=== PATIENT | male | born 1965 | race Caucasian/White ===

== ENCOUNTER 2024-12-06 10:11 | Inpatient (IN) | payer BC ==
--- NOTE | 2024-12-06 11:22 | ED ---
General Adult HPI - General Chief complaint: Abdominal Pain Stated complaint: Abd pain Time Seen by Provider: 12/06/24 10:20 Source: patient, EMS, RN notes reviewed, old records reviewed Mode of arrival: EMS Limitations: no limitations - History of Present Illness Initial comments: This is a 59-year-old male who presents to the emergency department from [facility]. Patient was diagnosed with diverticulitis with a small abscess. Patient was transferred to us at that time. Patient currently has only mild left lower quadrant abdominal pain. Patient denies any fever chills. Patient has vomiting diarrhea. Patient states he has a history of this about 6 months ago. They started the patient on Unasyn and then gave another dose of Zosyn. - Related Data Allergies Allergy/AdvReac Type Severity Reaction Status Date / Time bee venom protein (honey bee) Allergy Swelling Verified 12/06/24 10:32 [email or web address] [From Chantix] AdvReac Unknown Verified 12/06/24 10:32 Review of Systems ROS Statement: Those systems with pertinent positive or pertinent negative responses have been documented in the HPI. ROS Other: All systems not noted in ROS Statement are negative. Past Medical History Past Medical History: Hypertension History of Any Multi-Drug Resistant Organisms: None Reported Past Surgical History: Hernia Repair Additional Past Surgical History / Comment(s): tumor removal under jaw Past Psychological History: No Psychological Hx Reported Smoking Status: Current every day smoker Past Alcohol Use History: Occasional Past Drug Use History: Marijuana General Exam - General Exam Comments Initial Comments: GENERAL: Patient is well-developed and well-nourished. Patient is nontoxic and well- hydrated and is in mild distress. ENT: Neck is soft and supple. No significant lymphadenopathy is noted. Oropharynx is clear. Moist mucous membranes. Neck has full range of motion without eliciting any pain. EYES: The sclera were anicteric and conjunctiva were pink and moist. Extraocular movements were intact and pupils were equal round and reactive to light. Eyelids were unremarkable. PULMONARY: Unlabored respirations. Good breath sounds bilaterally. No audible rales rhonchi or wheezing was noted. CARDIOVASCULAR: There is a regular rate and rhythm without any murmurs gallops or rubs. ABDOMEN: Patient has some mild left lower quadrant abdominal pain SKIN: Skin is clear with no lesions or rashes and otherwise unremarkable. NEUROLOGIC: Patient is alert and oriented x3. Cranial nerves II through XII are grossly intact. Motor and sensory are also intact. Normal speech, volume and content. Symmetrical smile. MUSCULOSKELETAL: Normal extremities with adequate strength and full range of motion. LYMPHATICS: No significant lymphadenopathy is noted PSYCHIATRIC: Normal psychiatric evaluation. Limitations: no limitations Course Vital Signs 12/06/24 12/06/24 10:17 12:48 Temperature 98.2 F Pulse Rate 67 67 Respiratory 17 17 Rate Blood Pressure 107/63 112/74 O2 Sat by Pulse 94 L 95 Oximetry Medical Decision Making - Medical Decision Making Was pt. sent in by a medical professional or institution (, PA, SCHOOL RESOURCE OFFICER, urgent care, hospital, or fpc...) When possible be specific @ -Patient was sent to us from [facility] Did you speak to anyone other than the patient for history (EMS, parent, family, police, friend...)? What history was obtained from this source @ -I spoke with the ER [place] [facility] prior to transfer Did you review nursing and triage notes (agree or disagree)? Why? @ -I reviewed and agree with nursing and triage notes Were old charts reviewed (outside hosp., previous admission, EMS record, old EKG, old radiological studies, urgent care reports/EKG's, fpc records)? Report findings @ -I reviewed all documentation that was sent with the patient from [facility] including the CT scan and lab work. Differential Diagnosis? @ -Differential Abdominal Pain Men: Appendicitis, cholecystitis, diverticulosis, ischemic bowel, pancreatitis, hepatitis, UTI, gastroenteritis, AAA, incarcerated hernia, bowel obstruction, constipation, inflammatory bowel, hepatitis, peptic ulcer disease, splenic infarction, perforated viscus, testicular torsion, this is not meant to be an all-inclusive list EKG interpreted by me (3pts min.). @ -As above X-rays interpreted by me (1pt min.). @ -None done CT interpreted by me (1pt min.). @ -None done U/S interpreted by me (1pt. min.). @ -None done What testing was considered but not performed or refused? (CT, X-rays, U/S, labs)? Why? @ -None What meds were considered but not given or refused? Why? @ -None Did you discuss the management of the patient with other professionals (professionals i.e. , PA, SCHOOL RESOURCE OFFICER, lab, RT, psych nurse, sexual assault social worker, financial reporting manager, teacher, chief information officer, correctional case manager)? Give summary @ -I spoke with Dr. Locke he agreed admit the patient. I spoke with Dr. Bahena and he saw the patient in the emergency department. Was smoking cessation discussed for >3mins.? @ -No Was critical care preformed (if so, how long)? @ -No Were there social determinants of health that impacted care today? How? (Homelessness, low income, unemployed, alcoholism, drug addiction, transportation, low edu. Level, literacy, decrease access to med. care, mcc, rehab)? @ -No Was there de-escalation of care discussed even if they declined (Discuss DNR or withdrawal of care, Hospice)? DNR status @ -No What co-morbidities impacted this encounter? (DM, HTN, Smoking, COPD, CAD, Cancer, CVA, ARF, Chemo, Hep., AIDS, mental health diagnosis, sleep apnea, morbid obesity)? @ -None Was patient admitted / discharged? Hospital course, mention meds given and route, prescriptions, significant lab abnormalities, going to OR and other pertinent info. @ -Patient was started on antibiotics at the other facility and will be placed on antibiotics here and will be admitted to Dr. Locke with a consult to Dr. Lopez Undiagnosed new problem with uncertain prognosis? @ -No Drug Therapy requiring intensive monitoring for toxicity (Heparin, Nitro, Insulin, Cardizem)? @ -No Were any procedures done? @ -No Diagnosis/symptom? @ -Diverticulitis with abscess Acute, or Chronic, or Acute on Chronic? @ -Acute Uncomplicated (without systemic symptoms) or Complicated (systemic symptoms)? @ -Complicated Side effects of treatment? @ -No Exacerbation, Progression, or Severe Exacerbation? @ -No Poses a threat to life or bodily function? How? (Chest pain, [place], [place], pneumonia, PE, COPD, DKA, ARF, appy, cholecystitis, CVA, Diverticulitis, Homicidal, Suicidal, threat to staff... and all critical care pts) @ -Yes this could lead to sepsis and endorgan dysfunction Disposition Clinical Impression: Diverticulitis of intestine with abscess Disposition: ADMITTED IP TO THIS HOSP Referrals: Jerel Damon MD [Primary Care Provider] - 1-2 days Time of Disposition: 12:54
[2024-12-06] MEDS: HYDROmorphone 0.5 MG/0.5 ML SYRINGE IVP STA (13:12)
[2024-12-06] MEDS: SODIUM CHLORIDE 0.9% 1,000 ML IV ONE (13:14)
[2024-12-06] MEDS ORDERED: ONDANSETRON 4 MG/2 ML VIAL IVP PRN (13:18)
[2024-12-06] MEDS ORDERED: ACETAMINOPHEN TAB 325 MG TAB PO PRN (13:18)
[2024-12-06] MEDS ORDERED: CALCIUM CARBONATE 500 MG CHEWABLE PO PRN (13:18)
[2024-12-06] MEDS ORDERED: NALOXONE 0.4 MG/ML 1 ML VIAL IV PRN (13:18)
--- NOTE | 2024-12-06 13:21 | P.HPIM ---
History of Present Illness H&P Date: 12/06/24 Chief Complaint: Abdominal pain Pleasant 59-year-old patient who follows with Dr. Damon. Patient reports 6 to 7 months ago at significant abdominal pain was admitted to [facility] seen with Dr. Rocha. Then had an abscess. Was given antibiotics dis charged home. He did follow-up locally in [place]. Subsequently he was seen by Helena martin from GI service patient was then moved to [place] about 5 months ago. He was again admitted for 3 days with antibiotics. He was then told he probably need surgery. Sequential CT scans x 3 the abscess diminished and he was told he could be managed medically. 3 days ago he had colonoscopy done by the local doctor up in [place]. Some polyps were removed. Today subsequently started having creasing lower abdominal pain. Again presented to the [facility]. CT scan showed acute diverticulitis with an abscess of 5.5 x 5.5 x 5.9 cm. Some air-fluid levels. He was transferred down here. Patient normally has 1-2 bowel movements a day. Patient has felt a bit warm. No nausea vomiting. General surgery Dr. Bahena was consulted from the ER. Patient's at the bedside. Review of systems: GEN.: Tired EYES: None HEENT: None NECK: None RESPIRATORY: None CARDIOVASCULAR: None GASTROINTESTINAL: As above GENITOURINARY: None MUSCULOSKELETAL: None LYMPHATICS: None HEMATOLOGICAL: None PSYCHIATRY: None NEUROLOGICAL: None Social history: Drinks about 4 beers about 5 times a week. 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 Patient smoked for about 10 years 1 pack a day. Is a very light smoker. Physical examination: VITAL SIGNS: 98.2, 67, 17, 112 x 74, 95% room air GENERAL: BMI 37.7, lying bed awake not in distress. EYES: Pupils equal. Conjunctiva avis l. HEENT: External appearance of nose and ears normal, oral cavity grossly normal. NECK: JVD not raised; masses not palpable. HEART: First and second heart sounds are normal; no edema. LUNGS: Respiratory rate normal; clear to auscultation. ABDOMEN: Soft, some left lower quadrant tenderness, no guarding rigidity liver spleen not palpable, no masses palpable. PSYCH: Alert and oriented x3; mood and affect avis l. MUSCULOSKELETAL:No Clubbing/cyanosis;muscles-grossly intact NEUROLOGICAL: Cranial nerves grossly intact; no facial asymmetry, power and sensation grossly intact. LYMPHATICS: No lymph nodes palpable in the axilla and neck INVESTIGATIONS, reviewed in the clinical context: Blood work from [facility]: White count 15.6 hemoglobin 13.9 platelets 291 sodium 137 potassium 3.7 BUN 10 creatinine 0[address] scan abdomen pelvis: Left colon diverticulosis. Area of diverticulitis with a air-fluid level abscess of 5.5 x 5.5 x 5.9 cm. Assessment plan: -Acute diverticular abscess of 5.5 x 5.5 x 5.9 cm. Apparently patient is third episode of abscess 1 being treated about 6 to 7 months ago at [facility] then about 4 to 5 months ago at [facility]. Both times patient resolved. IV Zosyn. Clear liquid diet. Dr. Jaylon Lopez general surgery consulted. He may consider consulting interventional radiology for drainage -Acute left colonic diverticulitis IV Zosyn -Acute colonic diverticulosis -Chronic nicotine dependence cigarette smoker Nicotine patch -Full code Care was discussed with the patient and the at the bedside. Follow-up with surgery. Past Medical History Past Medical History: Hypertension History of Any Multi-Drug Resistant Organisms: None Reported Past Surgical History: Hernia Repair Additional Past Surgical History / Comment(s): tumor removal under jaw Past Psychological History: No Psychological Hx Reported Smoking Status: Current every day smoker Past Alcohol Use History: Occasional Past Drug Use History: Marijuana Medications and Allergies Allergies Allergy/AdvReac Type Severity Reaction Status Date / Time bee venom protein (honey bee) Allergy Swelling Verified 12/06/24 10:32 [email or web address] [From Chantix] AdvReac Unknown Verified 12/06/24 10:32 Physical Exam Vitals: Vital Signs Temp Pulse Resp BP Pulse Ox 12/06/24 12:48 67 17 112/74 95 12/06/24 10:17 98.2 F 67 17 107/63 94 L Intake and Output 12/05/24 12/06/24 12/06/24 22:59 06:59 14:59 Other: Weight 122.47 kg
--- NOTE | 2024-12-06 13:35 | XR ---
EXAMINATION TYPE: XR chest 2V DATE OF EXAM: 12/06/2024 1:31 PM COMPARISON: None. CLINICAL INDICATION: Male, 59 years old with history of Smoker, TECHNIQUE: XR chest 2V view(s) obtained. FINDINGS: The heart size is normal. The pulmonary vasculature is normal. The lungs are clear. IMPRESSION: 1. No acute pulmonary process. [facility], , 12/06/2024 1:32 PM
[2024-12-06] MEDS: PIPERACILLIN-TAZOBACTAM 3.375 GM in SODIUM CHLORIDE 0.9% 100 ML IVPB SCH (13:46)
[2024-12-06] MEDS: NICOTINE 21MG/24HR PATCH TRANSDERM SCH (13:51)
[2024-12-06] MEDS: ENOXAPARIN 40 MG/0.4 ML SYRINGE SQ SCH (13:51)
[2024-12-06] MEDS: LACTATED RINGERS 1,000 ML IV SCH (14:10)
--- NOTE | 2024-12-06 19:12 | P.GSCN ---
History of Present Illness History of present illness: Pleasant 59-year-old patient who follows with Dr. Damon. Patient reports 6 to 7 months ago at significant abdominal pain was admitted to [facility] seen with Dr. Rocha. Then had an abscess. Was given antibiotics discharged home. He did follow-up locally in [place]. Subsequently he was seen by Helena martin from GI service patient was then moved to [place] about 5 months ago. He was again admitted for 3 days with antibiotics. He was then told he probably need surgery. Sequential CT scans x 3 the abscess diminished and he was told he could be managed medically. 3 days ago he had colonoscopy done by the local doctor up in [place]. Some polyps were removed. Today subsequently started having creasing lower abdominal pain. Again presented to the [facility]. CT scan showed acute diverticulitis with an abscess of 5.5 x 5.5 x 5.9 cm. Some air-fluid levels. He was transferred down here. Patient normally has 1-2 bowel movements a day. Patient has felt a bit warm. No nausea vomiting. Review of Systems - Constitutional Reports as per HPI Past Medical History Past Medical History: Hypertension History of Any Multi-Drug Resistant Organisms: None Reported Past Surgical History: Hernia Repair Additional Past Surgical History / Comment(s): tumor removal under jaw Past Anesthesia/Blood Transfusion Reactions: No Reported Reaction Past Psychological History: No Psychological Hx Reported Smoking Status: Current every day smoker Past Alcohol Use History: Occasional Past Drug Use History: Marijuana Medications and Allergies Home Medications Medication Instructions Recorded Confirmed Type [place]-3/Dha/Epa/Fish Oil [Fish Oil 1 cap PO TID 12/06/24 12/06/24 History 1,000 mg Softgel] Psyllium Husk [Fiber Capsule] 0.4 gm PO BID-W/MEALS 12/06/24 12/06/24 History lisinopriL 40 mg PO DAILY 12/06/24 12/06/24 History lisinopriL 40 mg PO DAILY PRN 12/06/24 12/06/24 History Allergies Allergy/AdvReac Type Severity Reaction Status Date / Time bee venom protein (honey bee) Allergy Swelling Verified 12/06/24 13:31 [email or web address] [From Chantix] AdvReac Unknown Verified 12/06/24 13:31 Surgical - Exam Osteopathic Statement: *. No significant issues noted on an osteopathic structural exam other than those noted in the History and Physical/Consult. Vital Signs Temp Pulse Resp BP Pulse Ox 98.2 F 67 17 107/63 94 L 12/06/24 10:17 12/06/24 10:17 12/06/24 10:17 12/06/24 10:17 12/06/24 10:17 gen: nad cv: rrr pul: non labored breathing abd: soft, distended, tender to palpation in left lower quadrant as well as supraumbilical Assessment and Plan Assessment: 59 yo male w/ Hinchey II complicated diverticulitis -in an attempt to avoid giving the patient a colostomy bag, recommend IR intervention -goal is to follow up outpatient and perform an elective sigmoidectomy with primary anastamosis -continue IV abx -NPO Time with Patient: Greater than 30
[2024-12-06] MEDS: HYDROmorphone 1 MG/ML 1 ML SYRINGE IVP PRN (20:50)
[2024-12-06] MEDS: ALPRAZolam 0.25 MG TAB PO PRN (20:52)
[2024-12-06] MEDS: TEMAZEPAM 15 MG CAP PO PRN (20:52)
[2024-12-06] MEDS: HYDROcodone/APAP 5-325MG 1 EACH TAB PO PRN (23:50)
[2024-12-07 06:14] LABS: Basophils # (A) 0.1 k/uL (0-0.2); Basophils % (A) 1 %; Eosinophils # (A) 0.2 k/uL (0-0.7); Eosinophils % (A) 2 %; HCT 38.3 % (39.0-53.0); HGB 12.8 gm/dL (13.0-17.5); Lymphocytes # (A) 1.7 k/uL (1.0-4.8); Lymphocytes % (A) 18 %; MCH 32.7 pg (25.0-35.0); MCHC 33.5 g/dL (31.0-37.0); MCV 97.4 fL (80.0-100.0); Mean Platelet Volume 6.8; Monocytes # (A) 0.7 k/uL (0-1.0); Monocytes % (A) 8 %; Neutrophils # (A) 6.6 k/uL (1.3-7.7); Neutrophils % (A) 69 %; Platelet Count 292 k/uL (150-450); RBC 3.93 m/uL (4.30-5.90); RDW 12.8 % (11.5-15.5); WBC 9.5 k/uL (3.8-10.6)
[2024-12-07 06:27] LABS: ALT 24 U/L (4-49); AST 33 U/L (17-59); African American GFR (CKD) >90 (>60 ml/min/1.73 sqM); Albumin 3.2 g/dL (3.5-5.0); Albumin/Globulin Ratio 1.1; Alkaline Phosphatase 63 U/L (38-126); Anion Gap 7 mmol/L; Blood Urea Nitrogen 11 mg/dL (9-20); Calcium 8.6 mg/dL (8.4-10.2); Carbon Dioxide 25 mmol/L (22-30); Chloride 105 mmol/L (98-107); Globulin 2.9 g/dL; Glucose 87 mg/dL (74-99); Non-African American GFR(CKD) >90 (>60 ml/min/1.73 sqM); Potassium 3.9 mmol/L (3.5-5.1); Sodium 137 mmol/L (137-145); Total Bilirubin 1.4 mg/dL (0.2-1.3); Total Protein 6.1 g/dL (6.3-8.2)
--- NOTE | 2024-12-07 17:04 | P.PN ---
Progress Note - Text Progress Note Date: 12/07/24 Chief Complaint: Abdominal pain Pleasant 59-year-old patient who follows with Dr. Damon. Patient reports 6 to 7 months ago at significant abdominal pain was admitted to [facility] seen with Dr. Rocha. Then had an abscess. Was given antibiotics discharged home. He did follow-up locally in [place]. Subsequently he was seen by Helena martin from GI service patient was then moved to [place] about 5 months ago. He was again admitted for 3 days with antibiotics. He was then told he probably need surgery. Sequential CT scans x 3 the abscess diminished and he was told he could be managed medically. 3 days ago he had colonoscopy done by the local doctor up in [place]. Some polyps were removed. Today subsequently started having creasing lower abdominal pain. Again presented to the [facility]. CT scan showed acute diverticulitis with an abscess of 5.5 x 5.5 x 5.9 cm. Some air-fluid levels. He was transferred down here. Patient normally has 1-2 bowel movements a day. Patient has felt a bit warm. No nausea vomiting. General surgery Dr. Bahena was consulted from the ER. Patient's at the bedside. December 07: Patient has significantly increased pain overnight until this morning. Received IV Dilaudid. Pain is better.No fever. Will order repeat CT scan of the abdomen with contrast. Dr. Bahena from general surgery following. Patient is scheduled for IR drainage tomorrow. Patient was on clears. Made NPO. Active Medications Acetaminophen (Acetaminophen Tab 325 Mg Tab) 650 mg PO Q6HR PRN PRN Reason: Mild Pain or Fever > 100.5 Hydrocodone Bitart/Acetaminophen (Hydrocodone/Apap 5-325mg 1 Each Tab) 1 each PO Q4HR PRN PRN Reason: Moderate Pain (Scale 4 to 6) Last Admin: 12/07/24 14:24 Dose: 1 each Alprazolam (Alprazolam 0.25 Mg Tab) 0.25 mg PO Q6HR PRN PRN Reason: Anxiety Last Admin: 12/06/24 20:52 Dose: 0.25 mg Calcium Carbonate/Glycine (Calcium Carbonate 500 Mg Chewable) 1,000 mg PO Q4HR PRN PRN Reason: Dyspepsia Enoxaparin Sodium (Enoxaparin 40 Mg/0.4 Ml Syringe) 40 mg SQ DAILY ERIKA Last Admin: 12/07/24 08:42 Dose: 40 mg Hydromorphone HCl (Hydromorphone 1 Mg/Ml 1 Ml Syringe) 1 mg IVP Q4HR PRN PRN Reason: Pain Scale 7 to 10 Last Admin: 12/07/24 06:24 Dose: 1 mg Piperacillin Sod/Tazobactam (Sod 3.375 gm/ Sodium Chloride) 100 mls @ 25 mls/hr IVPB Q8H ERIKA; Protocol Last Admin: 12/07/24 14:20 Dose: 25 mls/hr Lactated Ringer's (Lactated Ringers) 1,000 mls @ 125 mls/hr IV .Q8H ERIKA Last Admin: 12/07/24 15:34 Dose: Not Given Iopamidol (Iopamidol Contrast (Oral Use) Vial) 30 ml PO Q60M PRN PRN Reason: CT Scan Stop: 12/08/24 16:59 Naloxone HCl (Naloxone 0.4 Mg/Ml 1 Ml Vial) 0.2 mg IV Q2M PRN PRN Reason: Opioid Reversal Nicotine (Nicotine 21mg/24hr Patch) 1 patch TRANSDERM DAILY [facility] Last Admin: 12/07/24 08:42 Dose: Not Given Ondansetron HCl (Ondansetron 4 Mg/2 Ml Vial) 4 mg IVP Q8HR PRN PRN Reason: Nausea And Vomiting Temazepam (Temazepam 15 Mg Cap) 15 mg PO HS PRN PRN Reason: Insomnia Last Admin: 12/06/24 20:52 Dose: 15 mg Social history: Drinks about 4 beers about 5 times a week. 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 Patient smoked for about 10 years 1 pack a day. Is a very light smoker. Physical examination: VITAL SIGNS: 98.8, 69, 16, 127 x 75, 94% room air GENERAL: BMI 37.7, lying bed awake, bit tired EYES: Pupils equal. Conjunctiva avis l. HEENT: External appearance of nose and ears normal, oral cavity grossly normal. NECK: JVD not raised; masses not palpable. HEART: First and second heart sounds are normal; no edema. LUNGS: Respiratory rate normal; clear to auscultation. ABDOMEN: Soft, some left lower quadrant tenderness, no guarding rigidity liver spleen not palpable, no masses palpable. PSYCH: Alert and oriented x3; mood and affect avis l. MUSCULOSKELETAL:No Clubbing/cyanosis;muscles-grossly intact INVESTIGATIONS, reviewed in the clinical context: December 07: White count 9.5 hemoglobin 12.8 potassium 3.9 creatinine 0.64 Blood work from [facility]: White count 15.6 hemoglobin 13.9 platelets 291 sodium 137 potassium 3.7 BUN 10 creatinine 0[address] scan abdomen pelvis: Left colon diverticulosis. Area of diverticulitis with a air-fluid level abscess of 5.5 x 5.5 x 5.9 cm. Assessment plan: -Acute diverticular abscess of 5.5 x 5.5 x 5.9 cm.: Much worsening overnight Apparently patient is third episode of abscess 1 being treated about 6 to 7 months ago at [facility] then about 4 to 5 months ago at [facility]. Both times-resolved. IV Zosyn. Clear liquid diet stopped. Made NPO. Dr. Jaylon Lopez considering interventional radiology to drain Repeat CT scan with contrast today given overnight much increasing pain. -Acute left colonic diverticulitis IV Zosyn -Acute colonic diverticulosis -Chronic nicotine dependence cigarette smoker Nicotine patch -Full code NPO. IV Zosyn. Repeat CT scan today with contrast. Past Medical History Past Medical History: Hypertension History of Any Multi-Drug Resistant Organisms: None Reported Past Surgical History: Hernia Repair Additional Past Surgical History / Comment(s): tumor removal under jaw Past Psychological History: No Psychological Hx Reported Smoking Status: Current every day smoker Past Alcohol Use History: Occasional Past Drug Use History: Marijuana
[2024-12-07] MEDS: IOPAMIDOL CONTRAST (ORAL USE) VIAL PO PRN (20:14)
--- NOTE | 2024-12-07 22:48 | CT ---
EXAMINATION TYPE: CT abdomen pelvis w con DATE OF EXAM: 12/07/2024 COMPARISON: Outside CT one day earlier CLINICAL INDICATION: Male, 59 years old with history of Increased pain with diverticulitis; PHH, abdo miguel pain, diverticulitis TECHNIQUE: Performed with Oral Contrast and with IV Contrast, patient injected with 100 mL of Isovue 300. CT DLP: 2597.4 mGycm Automated exposure control for dose reduction was used. FINDINGS: LUNG BASES: There is new bibasilar linear atelectasis. LIVER/GB: Cholecystectomy clips are redemonstrated. PANCREAS: No significant abnormality is seen. SPLEEN: No significant abnormality is seen. ADRENALS: Stable 2.0 cm left adrenal mass. Hounsfield units average 15. Malignant etiology not exclud ed. KIDNEYS: Persistent 3.8 cm simple appearing cortical cyst right kidney axial image 32. FREE AIR: No free air is visualized. RETROPERITONEAL ADENOPATHY: None visualized REPRODUCTIVE ORGANS: No significant abnormality is seen URINARY BLADDER: No significant abnormality is seen. PELVIC ADENOPATHY: None visualized. OSSEOUS STRUCTURES: Moderate disc space narrowing at the lumbosacral junction redemonstrated. BOWEL: Oral contrast reaches level of hepatic flexure. No abnormal small or large bowel dilatation. Scattered colonic diverticula most prominent distally. Persistent acute diverticulitis with mild/mode rate fat stranding along the proximal and mid sigmoid colon. Superior to this there is persistent thi n wall fluid collection with air-fluid level measuring 5.4 x 5.1 cm consistent with focal abscess axi al image 61. OTHER: Surgical clips left groin region are redemonstrated. IMPRESSION: PERSISTENT ACUTE DIVERTICULITIS WITH ADJACENT 5.4 CM FOCAL FLUID COLLECTION OR ABSCESS. NO SIGNIFICA NT CHANGE FROM OUTSIDE CT ONE DAY EARLIER. [facility], , 12/07/2024 10:45 PM
--- NOTE | 2024-12-07 23:18 | P.PN ---
Subjective Patient seen and evaluated at bedside. Patient admits to abdominal soreness in the left lower quadrant and suprapubic region. STates pain has improved compared to yesterday. Objective - Vital Signs Vital signs: Vital Signs Temp 98.6 F 12/07/24 19:02 Pulse 61 12/07/24 19:02 Resp 17 12/07/24 19:02 BP 118/56 12/07/24 19:02 Pulse Ox 94 L 12/07/24 19:02 FiO2 Intake & Output 12/07/24 12/07/24 12/08/24 06:59 18:59 06:59 Intake Total 1860 Balance 1860 Intake: Oral 0 Other: Voiding Method Toilet Toilet # Voids 1 4 - Exam gen: nad cv: rrr pul non labored breathing abd: soft, distended, tender to palpation in the left lower quadrant - Labs CBC & Chem 7: 12/07/24 05:44 12/07/24 05:44 Labs: Abnormal Lab Results - Last 24 Hours (Table) 12/07/24 12/07/24 Range/Units 05:44 05:44 RBC 3.93 L (4.30-5.90) m/uL Hgb 12.8 L (13.0-17.5) gm/dL Hct 38.3 L (39.0-53.0) % Creatinine 0.64 L (0.66-1.25) mg/dL Total Bilirubin 1.4 H (0.2-1.3) mg/dL Total Protein 6.1 L (6.3-8.2) g/dL Albumin 3.2 L (3.5-5.0) g/dL Assessment and Plan Assessment: 59 yo male w/ Hinchey II complicated diverticulitis -in an attempt to avoid giving the patient a colostomy bag, recommend IR intervention -goal is to follow up outpatient and perform an elective sigmoidectomy with primary anastamosis -continue IV abx -NPO -pain has slightly improved compared to yesterday Time with Patient: Less than 30
--- NOTE | 2024-12-08 11:44 | P.PN ---
Subjective Progress Note Date: 12/08/24 SURGICAL PROGRESS NOTE CHIEF COMPLAINT: Diverticulitis with abscess HISTORY OF PRESENT ILLNESS: Patient reports that he is feeling better today. He reports he had some pain after the CAT scan with diarrhea. Pain is now better. He denies any nausea or vomiting. CT scan abdomen pelvis had shown persistent acute diverticulitis with adjacent 5. 4 cm focal fluid collection or abscess. Patient evaluated by IR service. They reported that the fluid collection was too deep for them to reach and recommended a transfer to another facility. Afebrile. WBC is 9.5 Hgb 12.8 PHYSICAL EXAM: VITAL SIGNS: Reviewed. GENERAL: Well-developed in no acute distress. ABDOMEN: Soft. Nondistended. Mild discomfort with palpation left lower quadrant NEUROLOGIC: Alert and oriented. Cranial nerves II through XII grossly intact. ASSESSMENT: 1. Acute diverticulitis with abscess PLAN: -IR service at this facility is unable to place drain. They are reporting the fluid collection is too deep for them to reach. They recommended transfer to a tertiary care center to be evaluated by their IR service. This was discussed with medicine service and dependency case manager. manager electrical notified transfer team at [facility] about transfer. -Continue antibiotics Physician Baker Pie note has been reviewed by physician. Signing provider agrees with the documented findings, assessment, and plan of care. Objective - Vital Signs Vital signs: Vital Signs Temp 98.5 F 12/08/24 07:04 Pulse 64 12/08/24 07:04 Resp 16 12/08/24 07:04 BP 130/71 12/08/24 07:04 Pulse Ox 94 L 12/08/24 07:04 FiO2 Intake & Output 12/07/24 12/08/24 12/08/24 18:59 06:59 18:59 Intake Total 1860 Balance 1860 Intake: Oral 1860 Other: Voiding Method Toilet Toilet # Voids 4 1 # Bowel Movements 1 - Labs CBC & Chem 7: 12/07/24 05:44 12/07/24 05:44
[2024-12-08 13:31] VITALS: BMI 37.6
--- NOTE | 2024-12-08 19:17 | P.PN ---
Progress Note - Text Progress Note Date: 12/08/24 Chief Complaint: Abdominal pain Pleasant 59-year-old patient who follows with Dr. Damon. Patient reports 6 to 7 months ago at significant abdominal pain was admitted to [facility] seen with Dr. Rocha. Then had an abscess. Was given antibiotics discharged home. He did follow-up locally in [place]. Subsequently he was seen by Helena martin from GI service patient was then moved to [place] about 5 months ago. He was again admitted for 3 days with antibiotics. He was then told he probably need surgery. Sequential CT scans x 3 the abscess diminished and he was told he could be managed medically. 3 days ago he had colonoscopy done by the local doctor up in [place]. Some polyps were removed. Today subsequently started having creasing lower abdominal pain. Again presented to the [facility]. CT scan showed acute diverticulitis with an abscess of 5.5 x 5.5 x 5.9 cm. Some air-fluid levels. He was transferred down here. Patient normally has 1-2 bowel movements a day. Patient has felt a bit warm. No nausea vomiting. General surgery Dr. Bahena was consulted from the ER. Patient's at the bedside. December 07: Patient has significantly increased pain overnight until this morning. Received IV Dilaudid. Pain is better.No fever. Will order repeat CT scan of the abdomen with contrast. Dr. Bahena from general surgery following. Patient is scheduled for IR drainage tomorrow. Patient was on clears. Made NPO. December 08: CT scan done yesterday evening, unchanged from previous CT scan. Received a call from surgical team that are IR team cannot access the abscess patient have to be transferred out. Shirley Herrera from case management was informed. Later this afternoon she informed me that [facility] had declined. Then she had reached out to Brendan Barnes. Later received a call from Brendanchioma Barnes transfer team telephone #[phone]. She informed me that the case has been put up to their interventional radiology and they will call me back later. The last time awaiting a call. Patient remains on IV Zosyn. Pain controlled. No fever. NPO. Active Medications Acetaminophen (Acetaminophen Tab 325 Mg Tab) 650 mg PO Q6HR PRN PRN Reason: Mild Pain or Fever > 100.5 Hydrocodone Bitart/Acetaminophen (Hydrocodone/Apap 5-325mg 1 Each Tab) 1 each PO Q4HR PRN PRN Reason: Moderate Pain (Scale 4 to 6) Last Admin: 12/07/24 14:24 Dose: 1 each Alprazolam (Alprazolam 0.25 Mg Tab) 0.25 mg PO Q6HR PRN PRN Reason: Anxiety Last Admin: 12/06/24 20:52 Dose: 0.25 mg Calcium Carbonate/Glycine (Calcium Carbonate 500 Mg Chewable) 1,000 mg PO Q4HR PRN PRN Reason: Dyspepsia Enoxaparin Sodium (Enoxaparin 40 Mg/0.4 Ml Syringe) 40 mg SQ DAILY [facility] Last Admin: 12/08/24 08:44 Dose: 40 mg Hydromorphone HCl (Hydromorphone 1 Mg/Ml 1 Ml Syringe) 1 mg IVP Q4HR PRN PRN Reason: Pain Scale 7 to 10 Last Admin: 12/08/24 18:59 Dose: 1 mg Piperacillin Sod/Tazobactam (Sod 3.375 gm/ Sodium Chloride) 100 mls @ 25 mls/hr IVPB Q8H [facility]; Protocol Last Admin: 12/08/24 13:57 Dose: 25 mls/hr Lactated Ringer's (Lactated Ringers) 1,000 mls @ 125 mls/hr IV .Q8H [facility] Last Admin: 12/08/24 18:55 Dose: 125 mls/hr Naloxone HCl (Naloxone 0.4 Mg/Ml 1 Ml Vial) 0.2 mg IV Q2M PRN PRN Reason: Opioid Reversal Nicotine (Nicotine 21mg/24hr Patch) 1 patch TRANSDERM DAILY [facility] Last Admin: 12/08/24 08:44 Dose: Not Given Ondansetron HCl (Ondansetron 4 Mg/2 Ml Vial) 4 mg IVP Q8HR PRN PRN Reason: Nausea And Vomiting Temazepam (Temazepam 15 Mg Cap) 15 mg PO HS PRN PRN Reason: Insomnia Last Admin: 12/07/24 22:17 Dose: 15 mg Social history: Drinks about 4 beers about 5 times a week. 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 Patient smoked for about 10 years 1 pack a day. Is a very light smoker. Physical examination: VITAL SIGNS: 98.4, 62, 17, 123 x 73, 95% GENERAL: BMI 37.7, lying bed awake, not in distress EYES: Pupils equal. Conjunctiva avis l. HEENT: External appearance of nose and ears normal, oral cavity grossly normal. NECK: JVD not raised; masses not palpable. HEART: First and second heart sounds are normal; no edema. LUNGS: Respiratory rate normal; clear to auscultation. ABDOMEN: Soft, some left lower quadrant tenderness, no guarding rigidity liver spleen not palpable, no masses palpable. PSYCH: Alert and oriented x3; mood and affect avis l. MUSCULOSKELETAL:No Clubbing/cyanosis;muscles-grossly intact INVESTIGATIONS, reviewed in the clinical context: December 07: White count 9.5 hemoglobin 12.8 potassium 3.9 creatinine 0.64 Blood work from [facility]: White count 15.6 hemoglobin 13.9 platelets 291 sodium 137 potassium 3.7 BUN 10 creatinine 0[address] scan abdomen pelvis: Left colon diverticulosis. Area of diverticulitis with a air-fluid level abscess of 5.5 x 5.5 x 5.9 cm. Assessment plan: -Acute diverticular abscess of 5.5 x 5.5 x 5.9 cm.: Not improving Apparently patient is third episode of abscess 1 being treated about 6 to 7 months ago at [facility] then about 4 to 5 months ago at [facility]. Both times-resolved. IV Zosyn. N.p.o. Per surgical team patient to be transferred out because abscess is rather deep and our IR team cannot access it. [facility] declined. Brendan Barnes awaiting return phone call. -Acute left colonic diverticulitis IV Zosyn -Acute colonic diverticulosis -Chronic nicotine dependence cigarette smoker Nicotine patch -Full code NPO. IV Zosyn. Plan for transfer patient out Past Medical History Past Medical History: Hypertension History of Any Multi-Drug Resistant Organisms: None Reported Past Surgical History: Hernia Repair Additional Past Surgical History / Comment(s): tumor removal under jaw Past Psychological History: No Psychological Hx Reported Smoking Status: Current every day smoker Past Alcohol Use History: Occasional Past Drug Use History: Marijuana
[2024-12-09 06:10] LABS: Basophils # (A) 0.1 k/uL (0-0.2); Basophils % (A) 1 %; Eosinophils # (A) 0.3 k/uL (0-0.7); Eosinophils % (A) 6 %; HCT 38.9 % (39.0-53.0); HGB 12.9 gm/dL (13.0-17.5); Lymphocytes # (A) 1.3 k/uL (1.0-4.8); Lymphocytes % (A) 23 %; MCH 31.6 pg (25.0-35.0); MCHC 33.2 g/dL (31.0-37.0); MCV 95.4 fL (80.0-100.0); Mean Platelet Volume 7.2; Monocytes # (A) 0.4 k/uL (0-1.0); Monocytes % (A) 8 %; Neutrophils # (A) 3.2 k/uL (1.3-7.7); Neutrophils % (A) 58 %; Platelet Count 346 k/uL (150-450); RBC 4.07 m/uL (4.30-5.90); RDW 12.7 % (11.5-15.5); WBC 5.5 k/uL (3.8-10.6)
[2024-12-09] MEDS: DEXTROSE 5%-0.45% NACL 1,000 ML IV SCH (09:05)
--- NOTE | 2024-12-09 15:14 | P.PN ---
Subjective Progress Note Date: 12/09/24 SURGICAL PROGRESS NOTE CHIEF COMPLAINT: Diverticulitis with abscess HISTORY OF PRESENT ILLNESS: Patient reports some mild discomfort in the left lower quadrant. He is awaiting transfer to [facility] to be evaluated by their IR service for possible drain placement. Afebrile. WBC 5.5 patient reports that he is feeling better today. He reports he had some pain after the CAT scan with diarrhea. Pain is now better. He denies any nausea or vomiting. CT scan abdomen pelvis had shown persistent acute diverticulitis with adjacent 5. 4 cm focal fluid collection or abscess. Patient evaluated by IR service. They reported that the fluid collection was too deep for them to reach and recommended a transfer to another facility. Afebrile. WBC is 9.5 Hgb 12.8 PHYSICAL EXAM: VITAL SIGNS: Reviewed. GENERAL: Well-developed in no acute distress. ABDOMEN: Soft. Nondistended. Mild discomfort with palpation left lower quadrant NEUROLOGIC: Alert and oriented. Cranial nerves II through XII grossly intact. ASSESSMENT: 1. Acute diverticulitis with abscess PLAN: -IR service at this facility is unable to place drain. They are reporting the fluid collection is too deep for them to reach. They recommended transfer to a tertiary care center to be evaluated by their IR service. -Patient has been accepted at [facility]. Possible transfer to [facility] today -Continue antibiotics Physician Log Grader note has been reviewed by physician. Signing provider agrees with the documented findings, assessment, and plan of care. Attestation IR service did evaluate the CT and reports that fluid collection is too deep for them to reach. IR recommendation is for transfer to tertiary care center to be evaluated by different IR service. Awaiting transfer to outside facility. Michelle Zelaya DO Objective - Vital Signs Vital signs: Vital Signs Temp 98.5 F 12/09/24 14:00 Pulse 55 L 12/09/24 14:00 Resp 18 12/09/24 14:00 BP 152/73 12/09/24 14:00 Pulse Ox 94 L 12/09/24 14:00 FiO2 Intake & Output 12/08/24 12/09/24 12/09/24 18:59 06:59 18:59 Intake Total 700 Balance 700 Weight 122.47 kg Intake: Intake, IV Titration 700 Amount Lactated Ringers 1,000 ml 500 @ 125 mls/hr IV .Q8H [facility] Rx#:[id number] Piperacillin-Tazobactam 3 200 .375 gm In Sodium Chloride 0.9% 100 ml @ 25 mls/hr IVPB Q8H [facility] Rx#: [id number] Other: Voiding Method Toilet Toilet # Voids 2 2 - Labs CBC & Chem 7: 12/09/24 05:24 12/07/24 05:44 Labs: Abnormal Lab Results - Last 24 Hours (Table) 12/09/24 Range/Units 05:24 RBC 4.07 L (4.30-5.90) m/uL Hgb 12.9 L (13.0-17.5) gm/dL Hct 38.9 L (39.0-53.0) %
--- NOTE | 2024-12-09 17:46 | P.PN ---
Progress Note - Text Progress Note Date: 12/09/24 Chief Complaint: Abdominal pain Pleasant 59-year-old patient who follows with Dr. Damon. Patient reports 6 to 7 months ago at significant abdominal pain was admitted to [facility] seen with Dr. Rocha. Then had an abscess. Was given antibiotics discharged home. He did follow-up locally in [place]. Subsequently he was seen by Helena martin from GI service patient was then moved to [place] about 5 months ago. He was again admitted for 3 days with antibiotics. He was then told he probably need surgery. Sequential CT scans x 3 the abscess diminished and he was told he could be managed medically. 3 days ago he had colonoscopy done by the local doctor up in [place]. Some polyps were removed. Today subsequently started having creasing lower abdominal pain. Again presented to the [facility]. CT scan showed acute diverticulitis with an abscess of 5.5 x 5.5 x 5.9 cm. Some air-fluid levels. He was transferred down here. Patient normally has 1-2 bowel movements a day. Patient has felt a bit warm. No nausea vomiting. General surgery Dr. Bahena was consulted from the ER. Patient's at the bedside. December 07: Patient has significantly increased pain overnight until this morning. Received IV Dilaudid. Pain is better.No fever. Will order repeat CT scan of the abdomen with contrast. Dr. Bahena from general surgery following. Patient is scheduled for IR drainage tomorrow. Patient was on clears. Made NPO. December 08: CT scan done yesterday evening, unchanged from previous CT scan. Received a call from surgical team that are IR team cannot access the abscess patient have to be transferred out. Shirley Herrera from case management was informed. Later this afternoon she informed me that [facility] had declined. Then she had reached out to Brendanmarcelle Barnes. Later received a call from [facility] transfer team telephone #[phone]. She informed me that the case has been put up to their interventional radiology and they will call me back later. The last time awaiting a call. Patient remains on IV Zosyn. Pain controlled. No fever. NPO. December 09: Abdominal pain much better. Spoke to Hina from social work therapist. Told her to reach out again to Brendan Lewellen. That was done. Meantime also reached out to [facility]. Where patient received previous care. Communication [id number] finally Brendan Cameron excepted the patient. Currently no beds available. For insomnia given Ambien. Antibiotics to continue. Remains NPO. Active Medications Acetaminophen (Acetaminophen Tab 325 Mg Tab) 650 mg PO Q6HR PRN PRN Reason: Mild Pain or Fever > 100.5 Hydrocodone Bitart/Acetaminophen (Hydrocodone/Apap 5-325mg 1 Each Tab) 1 each PO Q4HR PRN PRN Reason: Moderate Pain (Scale 4 to 6) Last Admin: 12/07/24 14:24 Dose: 1 each Alprazolam (Alprazolam 0.25 Mg Tab) 0.25 mg PO Q6HR PRN PRN Reason: Anxiety Last Admin: 12/06/24 20:52 Dose: 0.25 mg Calcium Carbonate/Glycine (Calcium Carbonate 500 Mg Chewable) 1,000 mg PO Q4HR PRN PRN Reason: Dyspepsia Enoxaparin Sodium (Enoxaparin 40 Mg/0.4 Ml Syringe) 40 mg SQ DAILY [facility] Last Admin: 12/09/24 08:31 Dose: 40 mg Piperacillin Sod/Tazobactam (Sod 3.375 gm/ Sodium Chloride) 100 mls @ 25 mls/hr IVPB Q8H [facility]; Protocol Last Admin: 12/09/24 15:01 Dose: 25 mls/hr Dextrose/Sodium Chloride (Dextrose 5%-1/2ns Iv Soln) 1,000 mls @ 125 mls/hr IV .Q8H [facility] Last Admin: 12/09/24 15:51 Dose: 125 mls/hr Naloxone HCl (Naloxone 0.4 Mg/Ml 1 Ml Vial) 0.2 mg IV Q2M PRN PRN Reason: Opioid Reversal Nicotine (Nicotine 21mg/24hr Patch) 1 patch TRANSDERM DAILY [facility] Last Admin: 12/09/24 08:30 Dose: Not Given Ondansetron HCl (Ondansetron 4 Mg/2 Ml Vial) 4 mg IVP Q8HR PRN PRN Reason: Nausea And Vomiting Zolpidem Tartrate (Zolpidem 5 Mg Tab) 5 mg PO [facility] Social history: Drinks about 4 beers about 5 times a week. 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 Is a very light smoker. Physical examination: VITAL SIGNS: 98.5, 55, 18, 152 x 73, 94% room air GENERAL: BMI 37.7, lying bed awake, not in distress EYES: Pupils equal. Conjunctiva avis l. HEENT: External appearance of nose and ears normal, oral cavity grossly normal. NECK: JVD not raised; masses not palpable. HEART: First and second heart sounds are normal; no edema. LUNGS: Respiratory rate normal; clear to auscultation. ABDOMEN: Soft, some left lower quadrant tenderness, no guarding rigidity liver spleen not palpable, no masses palpable. PSYCH: Alert and oriented x3; mood and affect avis l. MUSCULOSKELETAL:No Clubbing/cyanosis;muscles-grossly intact INVESTIGATIONS, reviewed in the clinical context: December 09: White count 5.5 globin 12.9 platelets 346 December 07: White count 9.5 hemoglobin 12.8 potassium 3.9 creatinine 0.64 Blood work from [facility]: White count 15.6 hemoglobin 13.9 platelets 291 sodium 137 potassium 3.7 BUN 10 creatinine 0[address] scan abdomen pelvis: Left colon diverticulosis. Area of diverticulitis with a air-fluid level abscess of 5.5 x 5.5 x 5.9 cm. Assessment plan: -Acute left colonic diverticular abscess of 5.5 x 5.5 x 5.9 cm.: Not improving Apparently patient is third episode of abscess 1 being treated about 6 to 7 months ago at [facility] then about 4 to 5 months ago at [facility]. Both times-resolved. IV Zosyn. N.p.o. Patient accepted at [facility].-Currently no beds available -Acute left colonic diverticulitis IV Zosyn -Acute colonic diverticulosis -Chronic nicotine dependence cigarette smoker Nicotine patch -Full code NPO. IV Zosyn. Ending bed at [facility] for transfer. Past Medical History Past Medical History: Hypertension History of Any Multi-Drug Resistant Organisms: None Reported Past Surgical History: Hernia Repair Additional Past Surgical History / Comment(s): tumor removal under jaw Past Psychological History: No Psychological Hx Reported Smoking Status: Current every day smoker Past Alcohol Use History: Occasional Past Drug Use History: Marijuana
[2024-12-09] MEDS: ZOLPIDEM 5 MG TAB PO SCH (22:58)
--- NOTE | 2024-12-10 14:20 | P.PN ---
Subjective Progress Note Date: 12/10/24 SURGICAL PROGRESS NOTE CHIEF COMPLAINT: Diverticulitis with abscess HISTORY OF PRESENT ILLNESS: Patient is awaiting bed availability for transfer to [facility]. Patient reports improving left lower quadrant abdominal pain. Denies any nausea or vomiting. Afebrile. PHYSICAL EXAM: VITAL SIGNS: Reviewed. GENERAL: Well-developed in no acute distress. ABDOMEN: Soft. Nondistended. Mild discomfort with palpation left lower quadrant NEUROLOGIC: Alert and oriented. Cranial nerves II through XII grossly intact. ASSESSMENT: 1. Acute diverticulitis with abscess PLAN: -IR service at this facility is unable to place drain. They are reporting the fluid collection is too deep for them to reach. Fluid collection measuring 5.[address] [facility] IR service is recommended transfer to a tertiary care center to be evaluated by tertiary center IR service. -Patient has been accepted at [facility] awaiting bed availability -Continue antibiotics Physician Placement Coordinator note has been reviewed by physician. Signing provider agrees with the documented findings, assessment, and plan of care. Attestation Patient seen and examined at bedside. Presented with chief complaint of abdo miguel pain. Abdominal pain is resolving. His abscess is noted to be about 5.[address] Per interventional radiology, they are recommending transfer to tertiary care center for evaluated by another IR service for drainage. Patient is currently on IV antibiotics. We will continue these antibiotics as we await transfer for bed availability. Michelle Zelaya DO Objective - Vital Signs Vital signs: Vital Signs Temp 98 F 12/10/24 13:18 Pulse 54 L 12/10/24 13:18 Resp 17 12/10/24 13:18 BP 113/70 12/10/24 13:18 Pulse Ox 97 12/10/24 13:18 FiO2 Intake & Output 12/09/24 12/10/24 12/10/24 18:59 06:59 18:59 Intake Total 0 Balance 0 Intake: Oral 0 Other: Voiding Method Toilet Toilet # Voids 3 1 - Labs CBC & Chem 7: 12/09/24 05:24 12/07/24 05:44
--- NOTE | 2024-12-11 10:45 | P.PN ---
Progress Note - Text Progress Note Date: 12/10/24 Chief Complaint: Abdominal pain Pleasant 59-year-old patient who follows with Dr. Damon. Patient reports 6 to 7 months ago at significant abdominal pain was admitted to [facility] seen with Dr. Rocha. Then had an abscess. Was given antibiotics discharged home. He did follow-up locally in [place]. Subsequently he was seen by Helena martin from GI service patient was then moved to [place] about 5 months ago. He was again admitted for 3 days with antibiotics. He was then told he probably need surgery. Sequential CT scans x 3 the abscess diminished and he was told he could be managed medically. 3 days ago he had colonoscopy done by the local doctor up in [place]. Some polyps were removed. Today subsequently started having creasing lower abdominal pain. Again presented to the [facility]. CT scan showed acute diverticulitis with an abscess of 5.5 x 5.5 x 5.9 cm. Some air-fluid levels. He was transferred down here. Patient normally has 1-2 bowel movements a day. Patient has felt a bit warm. No nausea vomiting. General surgery Dr. Bahena was consulted from the ER. Patient's at the bedside. December 07: Patient has significantly increased pain overnight until this morning. Received IV Dilaudid. Pain is better.No fever. Will order repeat CT scan of the abdomen with contrast. Dr. Bahena from general surgery following. Patient is scheduled for IR drainage tomorrow. Patient was on clears. Made NPO. December 08: CT scan done yesterday evening, unchanged from previous CT scan. Received a call from surgical team that are IR team cannot access the abscess patient have to be transferred out. Shirley Herrera from case management was informed. Later this afternoon she informed me that [facility] had declined. Then she had reached out to [facility]arc[facility]. Later received a call from [facility] transfer team telephone #[phone]. She informed me that the case has been put up to their interventional radiology and they will call me back later. The last time awaiting a call. Patient remains on IV Zosyn. Pain controlled. No fever. NPO. December 09: Abdominal pain much better. Spoke to Hina from hospice social worker. Told her to reach out again to [facility]. That was done. Meantime also reached out to [facility]. Where patient received previous care. Communication [id number] finally [facility] excepted the patient. Currently no beds available. For insomnia given Ambien. Antibiotics to continue. Remains NPO. December 10: Abdominal pain controlled. Small bowel movement. Pending transfer to [facility] has been accepted. Getting IV antibiotics. NPO. Spoke to Shirley from child welfare caseworker to check again with other transferring hospital. If bed available. Medications reviewed Social history: Drinks about 4 beers about 5 times a week. 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 Patient smoked for about 10 years 1 pack a day. Is a very light smoker. Physical examination: VITAL SIGNS: 98, 54, 17, 113 x 70, 97% room air GENERAL: BMI 37.7, lying bed awake, not in distress EYES: Pupils equal. Conjunctiva avis l. HEENT: External appearance of nose and ears normal, oral cavity grossly normal. NECK: JVD not raised; masses not palpable. HEART: First and second heart sounds are normal; no edema. LUNGS: Respiratory rate normal; clear to auscultation. ABDOMEN: Soft, some left lower quadrant tenderness, no guarding rigidity liver spleen not palpable, no masses palpable. PSYCH: Alert and oriented x3; mood and affect avis l. MUSCULOSKELETAL:No Clubbing/cyanosis;muscles-grossly intact INVESTIGATIONS, reviewed in the clinical context: December 09: White count 5.5 globin 12.9 platelets 346 December 07: White count 9.5 hemoglobin 12.8 potassium 3.9 creatinine 0.64 Blood work from [facility]: White count 15.6 hemoglobin 13.9 platelets 291 sodium 137 potassium 3.7 BUN 10 creatinine 0[address] scan abdomen pelvis: Left colon diverticulosis. Area of diverticulitis with a air-fluid level abscess of 5.5 x 5.5 x 5.9 cm. Assessment plan: -Acute left colonic diverticular abscess of 5.5 x 5.5 x 5.9 cm.: Not improving Apparently patient is third episode of abscess 1 being treated about 6 to 7 months ago at [facility] then about 4 to 5 months ago at [facility]. Both times-resolved. IV Zosyn. N.p.o. Patient accepted at [facility].-Currently no beds available -Acute left colonic diverticulitis IV Zosyn -Acute colonic diverticulosis -Chronic nicotine dependence cigarette smoker Nicotine patch -Full code NPO. IV Zosyn. [facility]. Past Medical History Past Medical History: Hypertension History of Any Multi-Drug Resistant Organisms: None Reported Past Surgical History: Hernia Repair Additional Past Surgical History / Comment(s): tumor removal under jaw Past Psychological History: No Psychological Hx Reported Smoking Status: Current every day smoker Past Alcohol Use History: Occasional Past Drug Use History: Marijuana
[2024-12-11 11:27] LABS: HCT 43.8 % (39.0-53.0); HGB 14.2 gm/dL (13.0-17.5); MCH 31.7 pg (25.0-35.0); MCHC 32.5 g/dL (31.0-37.0); MCV 97.7 fL (80.0-100.0); Mean Platelet Volume 6.5; Platelet Count 469 k/uL (150-450); RBC 4.49 m/uL (4.30-5.90); RDW 12.6 % (11.5-15.5); WBC 5.8 k/uL (3.8-10.6)
[2024-12-11 11:57] LABS: ALT 54 U/L (4-49); AST 63 U/L (17-59); African American GFR (CKD) >90 (>60 ml/min/1.73 sqM); Albumin/Globulin Ratio 1.2; Alkaline Phosphatase 85 U/L (38-126); Anion Gap 10 mmol/L; Blood Urea Nitrogen 2 mg/dL (9-20); Calcium 9.2 mg/dL (8.4-10.2); Carbon Dioxide 28 mmol/L (22-30); Chloride 103 mmol/L (98-107); Globulin 3.3 g/dL; Glucose 80 mg/dL (74-99); Non-African American GFR(CKD) >90 (>60 ml/min/1.73 sqM); Potassium 4.3 mmol/L (3.5-5.1); Sodium 141 mmol/L (137-145); Total Bilirubin 0.5 mg/dL (0.2-1.3); Total Protein 7.3 g/dL (6.3-8.2)
--- NOTE | 2024-12-11 16:17 | P.PN ---
Subjective Progress Note Date: 12/11/24 SURGICAL PROGRESS NOTE CHIEF COMPLAINT: Diverticulitis with abscess HISTORY OF PRESENT ILLNESS: Patient is awaiting bed availability for transfer to [facility]. Patient reports his abdominal pain has resolved. He denies any nausea or vomiting. Afebrile. WBC 5.8 PHYSICAL EXAM: VITAL SIGNS: Reviewed. GENERAL: Well-developed in no acute distress. ABDOMEN: Soft. Nondistended. Nontender NEUROLOGIC: Alert and oriented. Cranial nerves II through XII grossly intact. ASSESSMENT: 1. Acute diverticulitis with abscess PLAN: -IR service at this facility is unable to place drain. They are reporting the fluid collection is too deep for them to reach. Fluid collection measuring 5.[address] [facility] IR service is recommended transfer to a tertiary care center to be evaluated by tertiary center IR service. -Patient has been accepted at [facility] awaiting bed availability -Continue antibiotics Physician Robotics Technician note has been reviewed by physician. Signing provider agrees with the documented findings, assessment, and plan of care. Attestation Patient seen and examined at bedside. Chief complaint of abdominal pain with finding of diverticulitis with abscess. IR service recommending transfer to outside facility for evaluation for drainage catheter. Patient states that he has had improvement in his symptoms after IV antibiotics. Continue current management. Awaiting bed at outside facility and transfer process in place. Michelle Zelaya DO Objective - Vital Signs Vital signs: Vital Signs Temp 97.5 F L 12/11/24 13:09 Pulse 60 12/11/24 13:09 Resp 19 12/11/24 13:09 BP 124/82 12/11/24 13:09 Pulse Ox 99 12/11/24 13:09 FiO2 Intake & Output 12/10/24 12/11/24 12/11/24 18:59 06:59 18:59 Intake Total 2200 031 7693 Balance 6936 982 1351 Weight 122.47 kg Intake: Oral 8865 386 8491 Other: Voiding Method Toilet # Voids 3 - Labs CBC & Chem 7: 12/11/24 11:05 12/11/24 11:05 Labs: Abnormal Lab Results - Last 24 Hours (Table) 12/11/24 12/11/24 Range/Units 11:05 11:05 Plt Count 469 H (150-450) k/uL BUN 2 L (9-20) mg/dL AST 63 H (17-59) U/L ALT 54 H (4-49) U/L
--- NOTE | 2024-12-11 19:18 | P.PN ---
Progress Note - Text Progress Note Date: 12/11/24 Chief Complaint: Abdominal pain Pleasant 59-year-old patient who follows with Dr. Damon. Patient reports 6 to 7 months ago at significant abdominal pain was admitted to [facility] seen with Dr. Rocha. Then had an abscess. Was given antibiotics discharged home. He did follow-up locally in [place]. Subsequently he was seen by Helena martin from GI service patient was then moved to [place] about 5 months ago. He was again admitted for 3 days with antibiotics. He was then told he probably need surgery. Sequential CT scans x 3 the abscess diminished and he was told he could be managed medically. 3 days ago he had colonoscopy done by the local doctor up in [place]. Some polyps were removed. Today subsequently started having creasing lower abdominal pain. Again presented to the [facility]. CT scan showed acute diverticulitis with an abscess of 5.5 x 5.5 x 5.9 cm. Some air-fluid levels. He was transferred down here. Patient normally has 1-2 bowel movements a day. Patient has felt a bit warm. No nausea vomiting. General surgery Dr. Bahena was consulted from the ER. Patient's at the bedside. December 07: Patient has significantly increased pain overnight until this morning. Received IV Dilaudid. Pain is better.No fever. Will order repeat CT scan of the abdomen with contrast. Dr. Bahena from general surgery following. Patient is scheduled for IR drainage tomorrow. Patient was on clears. Made NPO. December 08: CT scan done yesterday evening, unchanged from previous CT scan. Received a call from surgical team that are IR team cannot access the abscess patient have to be transferred out. Shirley Herrera from case management was informed. Later this afternoon she informed me that Geremias Olivera had declined. Then she had reached out to Brendanmarcelle Barnes. Later received a call from [facility] transfer team telephone #[phone]. She informed me that the case has been put up to their interventional radiology and they will call me back later. The last time awaiting a call. Patient remains on IV Zosyn. Pain controlled. No fever. NPO. December 09: Abdominal pain much better. Spoke to Hina from licensed master social worker. Told her to reach out again to [facility]. That was done. Meantime also reached out to [facility]. Where patient received previous care. Communication [id number] finally [facility] excepted the patient. Currently no beds available. For insomnia given Ambien. Antibiotics to continue. Remains NPO. December 10: Abdominal pain controlled. Small bowel movement. Pending transfer to [facility] has been accepted. Getting IV antibiotics. NPO. Spoke to Shirley from test case developer to check again with other transferring hospital. If bed available. December 11: Still pending transferred to [facility]. Small BM. Pain controlled. Getting IV Zosyn. IV fluids Active Medications Acetaminophen (Acetaminophen Tab 325 Mg Tab) 650 mg PO Q6HR PRN PRN Reason: Mild Pain or Fever > 100.5 Hydrocodone Bitart/Acetaminophen (Hydrocodone/Apap 5-325mg 1 Each Tab) 1 each PO Q4HR PRN PRN Reason: Moderate Pain (Scale 4 to 6) Last Admin: 12/10/24 22:05 Dose: 1 each Alprazolam (Alprazolam 0.25 Mg Tab) 0.25 mg PO Q6HR PRN PRN Reason: Anxiety Last Admin: 12/09/24 21:03 Dose: 0.25 mg Calcium Carbonate/Glycine (Calcium Carbonate 500 Mg Chewable) 1,000 mg PO Q4HR PRN PRN Reason: Dyspepsia Enoxaparin Sodium (Enoxaparin 40 Mg/0.4 Ml Syringe) 40 mg SQ DAILY [facility] Last Admin: 12/11/24 09:03 Dose: 40 mg Piperacillin Sod/Tazobactam (Sod 3.375 gm/ Sodium Chloride) 100 mls @ 25 mls/hr IVPB Q8H [facility]; Protocol Last Admin: 12/11/24 13:31 Dose: 25 mls/hr Dextrose/Sodium Chloride (Dextrose 5%-1/2ns Iv Soln) 1,000 mls @ 125 mls/hr IV .Q8H [facility] Last Admin: 12/11/24 17:42 Dose: Not Given Naloxone HCl (Naloxone 0.4 Mg/Ml 1 Ml Vial) 0.2 mg IV Q2M PRN PRN Reason: Opioid Reversal Nicotine (Nicotine 21mg/24hr Patch) 1 patch TRANSDERM DAILY [facility] Last Admin: 12/11/24 09:02 Dose: Not Given Ondansetron HCl (Ondansetron 4 Mg/2 Ml Vial) 4 mg IVP Q8HR PRN PRN Reason: Nausea And Vomiting Zolpidem Tartrate (Zolpidem 5 Mg Tab) 5 mg PO HS [facility] Last Admin: 12/10/24 22:05 Dose: 5 mg Social history: Drinks about 4 beers about 5 times a week. 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 Patient smoked for about 10 years 1 pack a day. Is a very light smoker. Physical examination: VITAL SIGNS: 97.5, 60, 19, 124 x 82, 99% room air GENERAL: BMI 37.7, lying bed awake, comfortable EYES: Pupils equal. Conjunctiva avis l. HEENT: External appearance of nose and ears normal, oral cavity grossly normal. NECK: JVD not raised; masses not palpable. HEART: First and second heart sounds are normal; no edema. LUNGS: Respiratory rate normal; clear to auscultation. ABDOMEN: Soft, mild left lower quadrant tenderness, no guarding rigidity liver spleen not palpable, no masses palpable. PSYCH: Alert and oriented x3; mood and affect avis l. MUSCULOSKELETAL:No Clubbing/cyanosis;muscles-grossly intact INVESTIGATIONS, reviewed in the clinical context: December 11: White count 5.8 hemoglobin 14.2 potassium 4.3 December 09: White count 5.5 globin 12.9 platelets 346 December 07: White count 9.5 hemoglobin 12.8 potassium 3.9 creatinine 0.64 Blood work from [facility]: White count 15.6 hemoglobin 13.9 platelets 291 sodium 137 potassium 3.7 BUN 10 creatinine 0[address] scan abdomen pelvis: Left colon diverticulosis. Area of diverticulitis with a air-fluid level abscess of 5.5 x 5.5 x 5.9 cm. Assessment plan: -Acute left colonic diverticular abscess of 5.5 x 5.5 x 5.9 cm.: Not improving Apparently patient is third episode of abscess 1 being treated about 6 to 7 months ago at [facility] then about 4 to 5 months ago at [facility]. Both times-resolved. IV Zosyn. N.p.o. Patient accepted at [facility].-Pending transfer, pending beds -Acute left colonic diverticulitis IV Zosyn -Acute colonic diverticulosis -Chronic nicotine dependence cigarette smoker Nicotine patch -Full code NPO. IV Vero. Pending transfer to [facility]. Past Medical History Past Medical History: Hypertension History of Any Multi-Drug Resistant Organisms: None Reported Past Surgical History: Hernia Repair Additional Past Surgical History / Comment(s): tumor removal under jaw Past Psychological History: No Psychological Hx Reported Smoking Status: Current every day smoker Past Alcohol Use History: Occasional Past Drug Use History: Marijuana
--- NOTE | 2024-12-12 17:41 | P.PN ---
Progress Note - Text Progress Note Date: 12/12/24 Chief Complaint: Abdominal pain Pleasant 59-year-old patient who follows with Dr. Damon. Patient reports 6 to 7 months ago at significant abdominal pain was admitted to [facility] seen with Dr. Rocha. Then had an abscess. Was given antibiotics discharged home. He did follow-up locally in [place]. Subsequently he was seen by Helena martin from GI service patient was then moved to [place] about 5 months ago. He was again admitted for 3 days with antibiotics. He was then told he probably need surgery. Sequential CT scans x 3 the abscess diminished and he was told he could be managed medically. 3 days ago he had colonoscopy done by the local doctor up in [place]. Some polyps were removed. Today subsequently started having creasing lower abdominal pain. Again presented to the [facility]. CT scan showed acute diverticulitis with an abscess of 5.5 x 5.5 x 5.9 cm. Some air-fluid levels. He was transferred down here. Patient normally has 1-2 bowel movements a day. Patient has felt a bit warm. No nausea vomiting. General surgery Dr. Bahean was consulted from the ER. Patient's at the bedside. December 07: Patient has significantly increased pain overnight until this morning. Received IV Dilaudid. Pain is better.No fever. Will order repeat CT scan of the abdomen with contrast. Dr. Bahena from general surgery following. Patient is scheduled for IR drainage tomorrow. Patient was on clears. Made NPO. December 08: CT scan done yesterday evening, unchanged from previous CT scan. Received a call from surgical team that are IR team cannot access the abscess patient have to be transferred out. Shirley Herrera from case management was informed. Later this afternoon she informed me that Geremias Olivera had declined. Then she had reached out to Brendanmarcelle Barnes. Later received a call from [facility] transfer team telephone #[phone]. She informed me that the case has been put up to their interventional radiology and they will call me back later. The last time awaiting a call. Patient remains on IV Zosyn. Pain controlled. No fever. NPO. December 09: Abdominal pain much better. Spoke to Hina from social service agency director. Told her to reach out again to [facility] Rhodes. That was done. Meantime also reached out to [facility]. Where patient received previous care. Communication [id number] finally [facility] excepted the patient. Currently no beds available. For insomnia given Ambien. Antibiotics to continue. Remains NPO. December 10: Abdominal pain controlled. Small bowel movement. Pending transfer to [facility] has been accepted. Getting IV antibiotics. NPO. Spoke to Shirley from outpatient case manager to check again with other transferring hospital. If bed available. December 11: Still pending transferred to [facility]. Small BM. Pain controlled. Getting IV Zosyn. IV fluids December 12: Small BMs. Pain controlled. IV Zosyn. On clear liquid diet. Still awaiting bed at [facility]. Up to bathroom. Active Medications Acetaminophen (Acetaminophen Tab 325 Mg Tab) 650 mg PO Q6HR PRN PRN Reason: Mild Pain or Fever > 100.5 Hydrocodone Bitart/Acetaminophen (Hydrocodone/Apap 5-325mg 1 Each Tab) 1 each PO Q4HR PRN PRN Reason: Moderate Pain (Scale 4 to 6) Last Admin: 12/10/24 22:05 Dose: 1 each Alprazolam (Alprazolam 0.25 Mg Tab) 0.25 mg PO Q6HR PRN PRN Reason: Anxiety Last Admin: 12/09/24 21:03 Dose: 0.25 mg Calcium Carbonate/Glycine (Calcium Carbonate 500 Mg Chewable) 1,000 mg PO Q4HR PRN PRN Reason: Dyspepsia Enoxaparin Sodium (Enoxaparin 40 Mg/0.4 Ml Syringe) 40 mg SQ DAILY [facility] Last Admin: 12/12/24 07:59 Dose: 40 mg Piperacillin Sod/Tazobactam (Sod 3.375 gm/ Sodium Chloride) 100 mls @ 25 mls/hr IVPB Q8H [facility]; Protocol Last Admin: 12/12/24 14:04 Dose: 25 mls/hr Dextrose/Sodium Chloride (Dextrose 5%-1/2ns Iv Soln) 1,000 mls @ 125 mls/hr IV .Q8H [facility] Last Admin: 12/12/24 14:49 Dose: 125 mls/hr Naloxone HCl (Naloxone 0.4 Mg/Ml 1 Ml Vial) 0.2 mg IV Q2M PRN PRN Reason: Opioid Reversal Nicotine (Nicotine 21mg/24hr Patch) 1 patch TRANSDERM DAILY [facility] Last Admin: 12/12/24 07:59 Dose: Not Given Ondansetron HCl (Ondansetron 4 Mg/2 Ml Vial) 4 mg IVP Q8HR PRN PRN Reason: Nausea And Vomiting Zolpidem Tartrate (Zolpidem 5 Mg Tab) 5 mg PO HS [facility] Last Admin: 12/12/24 01:04 Dose: 5 mg Social history: Drinks about 4 beers about 5 times a week. 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 Is a very light smoker. Physical examination: VITAL SIGNS: 98.4, 64, 18, 142/76, 95% room air GENERAL: BMI 37.7, lying bed awake, comfortable EYES: Pupils equal. Conjunctiva avis l. HEENT: External appearance of nose and ears normal, oral cavity grossly normal. NECK: JVD not raised; masses not palpable. HEART: First and second heart sounds are normal; no edema. LUNGS: Respiratory rate normal; clear to auscultation. ABDOMEN: Soft, mild left lower quadrant tenderness, no guarding rigidity liver spleen not palpable, no masses palpable. PSYCH: Alert and oriented x3; mood and affect avis l. MUSCULOSKELETAL:No Clubbing/cyanosis;muscles-grossly intact INVESTIGATIONS, reviewed in the clinical context: December 11: White count 5.8 hemoglobin 14.2 potassium 4.3 December 09: White count 5.5 globin 12.9 platelets 346 December 07: White count 9.5 hemoglobin 12.8 potassium 3.9 creatinine 0.64 Blood work from [facility]: White count 15.6 hemoglobin 13.9 platelets 291 sodium 137 potassium 3.7 BUN 10 creatinine 0[address] scan abdomen pelvis: Left colon diverticulosis. Area of diverticulitis with a air-fluid level abscess of 5.5 x 5.5 x 5.9 cm. Assessment plan: -Acute left colonic diverticular abscess of 5.5 x 5.5 x 5.9 cm.: Not improving Apparently patient is third episode of abscess 1 being treated about 6 to 7 months ago at [facility] then about 4 to 5 months ago at [facility]. Both times-resolved. IV Zosyn. Clear liquids Patient accepted at [facility].-Pending transfer, pending beds -Acute left colonic diverticulitis IV Zosyn -Acute colonic diverticulosis -Chronic nicotine dependence cigarette smoker Nicotine patch -Full code Liquids. IV Zosyn. Pending transfer to [facility]. Past Medical History Past Medical History: Hypertension History of Any Multi-Drug Resistant Organisms: None Reported Past Surgical History: Hernia Repair Additional Past Surgical History / Comment(s): tumor removal under jaw Past Psychological History: No Psychological Hx Reported Smoking Status: Current every day smoker Past Alcohol Use History: Occasional Past Drug Use History: Marijuana
--- NOTE | 2024-12-12 18:54 | P.PN ---
Progress Note - Text Progress Note Date: 12/12/24 CHIEF COMPLAINT: Diverticulitis with abscess HISTORY OF PRESENT ILLNESS:No acute events overnight PHYSICAL EXAM: VITAL SIGNS: Reviewed. GENERAL: Well-developed in no acute distress. ABDOMEN: Soft. Nondistended. Nontender NEUROLOGIC: Alert and oriented. Cranial nerves II through XII grossly intact. ASSESSMENT: 1. Acute diverticulitis with abscess PLAN: -IR service at this facility is unable to place drain. They are reporting the fluid collection is too deep for them to reach. Fluid collection measuring 5.[address] [facility] IR service is recommended transfer to a tertiary care center to be evaluated by tertiary center IR service. -Patient is being transferred to [facility] [phone]
[2024-12-12 19:20] VITALS: BP 160/64; PULSE 61; RESP 16; TEMP 98
--- NOTE | 2024-12-13 14:21 | P.DS ---
Providers Date of admission: 12/06/24 12:54 Expected date of discharge: 12/12/24 Attending physician: Ajith Locke Consults: 12/06/24 12:54 Consult Physician Urgent Consulting Provider: Jaylon aBhena Consult Reason/Comments: Diverticulitis with abscess Do you want consulting provider notified?: Already Contacted Primary care physician: [facility] Course: Chief Complaint: Abdominal pain Pleasant 59-year-old patient who follows with Dr. Damon. Patient reports 6 to 7 months ago at significant abdominal pain was admitted to [facility] seen with Dr. Rocha. Then had an abscess. Was given antibiotics discharged home. He did follow-up locally in [place]. Subsequently he was seen by Helena martin from GI service patient was then moved to [place] about 5 months ago. He was again admitted for 3 days with antibiotics. He was then told he probably need surgery. Sequential CT scans x 3 the abscess diminished and he was told he could be managed medically. 3 days ago he had colonoscopy done by the local doctor up in [place]. Some polyps were removed. Today subsequently started having creasing lower abdominal pain. Again presented to the [facility]. CT scan showed acute diverticulitis with an abscess of 5.5 x 5.5 x 5.9 cm. Some air-fluid levels. He was transferred down here. Patient normally has 1-2 bowel movements a day. Patient has felt a bit warm. No nausea vomiting. General surgery Dr. Bahena was consulted from the ER. Patient's at the bedside. December 07: Patient has significantly increased pain overnight until this morning. Received IV Dilaudid. Pain is better.No fever. Will order repeat CT scan of the abdomen with contrast. Dr. Bahena from general surgery following. Patient is scheduled for IR drainage tomorrow. Patient was on clears. Made NPO. December 08: CT scan done yesterday evening, unchanged from previous CT scan. Received a call from surgical team that are IR team cannot access the abscess patient have to be transferred out. Shirley Herrera from case management was informed. Later this afternoon she informed me that [facility] had declined. Then she had reached out to Brendanmarcelle Barnes. Later received a call from [facility] transfer team telephone #[phone]. She informed me that the case has been put up to their interventional radiology and they will call me back later. The last time awaiting a call. Patient remains on IV Zosyn. Pain controlled. No fever. NPO. December 09: Abdominal pain much better. Spoke to Hina from nephrology social worker. Told her to reach out again to [facility]. That was done. Meantime also reached out to [facility]. Where patient received previous care. Communication [id number] finally [facility] excepted the patient. Currently no beds available. For insomnia given Ambien. Antibiotics to continue. Remains NPO. December 10: Abdominal pain controlled. Small bowel movement. Pending transfer to [facility] has been accepted. Getting IV antibiotics. NPO. Spoke to Shirley from foster care case manager to check again with other transferring hospital. If bed available. December 11: Still pending transferred to [facility]. Small BM. Pain controlled. Getting IV Zosyn. IV fluids December 12: Small BMs. Pain controlled. IV Zosyn. On clear liquid diet. Still awaiting bed at [facility]. Up to bathroom. Later in the evening patient was getting transferred to [facility]. Social history: Drinks about 4 beers about 5 times a week. 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 Patient smoked for about 10 years 1 pack a day. Is a very light smoker. Physical examination: VITAL SIGNS: 98.4, 64, 18, 142/76, 95% room air GENERAL: BMI 37.7, lying bed awake, comfortable EYES: Pupils equal. Conjunctiva avis l. HEENT: External appearance of nose and ears normal, oral cavity grossly normal. NECK: JVD not raised; masses not palpable. HEART: First and second heart sounds are normal; no edema. LUNGS: Respiratory rate normal; clear to auscultation. ABDOMEN: Soft, mild left lower quadrant tenderness, no guarding rigidity liver spleen not palpable, no masses palpable. PSYCH: Alert and oriented x3; mood and affect avis l. MUSCULOSKELETAL:No Clubbing/cyanosis;muscles-grossly intact INVESTIGATIONS, reviewed in the clinical context: December 11: White count 5.8 hemoglobin 14.2 potassium 4.3 December 09: White count 5.5 globin 12.9 platelets 346 December 07: White count 9.5 hemoglobin 12.8 potassium 3.9 creatinine 0.64 Blood work from [facility]: White count 15.6 hemoglobin 13.9 platelets 291 sodium 137 potassium 3.7 BUN [address] scan abdomen pelvis: Left colon diverticulosis. Area of diverticulitis with a air-fluid level abscess of 5.5 x 5.5 x 5.9 cm. Assessment plan: -Acute left colonic diverticular abscess of 5.5 x 5.5 x 5.9 cm.: Not improving Apparently patient is third episode of abscess 1 being treated about 6 to 7 months ago at [facility] then about 4 to 5 months ago at [facility]. Both times-resolved. IV Zosyn. Clear liquids Patient accepted at [facility].-Pending transfer, pending beds -Acute left colonic diverticulitis IV Zosyn -Acute colonic diverticulosis -Chronic nicotine dependence cigarette smoker Nicotine patch -Full code Disposition: [facility] for higher level of care. Past Medical History Past Medical History: Hypertension History of Any Multi-Drug Resistant Organisms: None Reported Past Surgical History: Hernia Repair Additional Past Surgical History / Comment(s): tumor removal under jaw Past Psychological History: No Psychological Hx Reported Smoking Status: Current every day smoker Past Alcohol Use History: Occasional Past Drug Use History: Marijuana Plan - Discharge Summary Discharge Rx Participant: No New Discharge Prescriptions: No Action lisinopriL 40 mg PO DAILY Psyllium Husk [Fiber Capsule] 0.4 gm PO BID-W/MEALS lisinopriL 40 mg PO DAILY PRN PRN Reason: HIGH BP [place]-3/Dha/Epa/Fish Oil [Fish Oil 1,000 mg Softgel] 1 cap PO TID Discharge Medication List [place]-3/Dha/Epa/Fish Oil [Fish Oil 1,000 mg Softgel] 1 cap PO TID 12/06/24 [History] Psyllium Husk [Fiber Capsule] 0.4 gm PO BID-W/MEALS 12/06/24 [History] lisinopriL 40 mg PO DAILY 12/06/24 [History] lisinopriL 40 mg PO DAILY PRN 12/06/24 [History] Follow up Appointment(s)/Referral(s): Jerel Damon MD [Primary Care Provider] - 1-2 days Discharge Disposition: OTHER INSTITUTION NOT DEFINED
== END 2024-12-12 19:45 | disposition short-term general hospital (02) | DRG 391 ==
LOC: EC 10:11 → 5NMEDONC 12:54
PROVIDERS: ADMIT Hospitalist; ATTEND Hospitalist
DX: K57.20 Diverticulitis of large intestine with perforation and abscess without bleeding (principal); K65.1 Peritoneal abscess; I10 Essential (primary) hypertension; G47.00 Insomnia, unspecified; F17.210 Nicotine dependence, cigarettes, uncomplicated; Z79.899 Other long term (current) drug therapy; Z71.6 Tobacco abuse counseling
CPT/HCPCS: 71046; 74177; 80053; 84145; 85025; 85027; 87635; 93005; 96361; 96365; 96372; 96375; 99285